=== PATIENT | female | born 1990 | race Caucasian/White ===

== ENCOUNTER 2023-06-16 07:48 | Emergency (ER) | payer MEDICAID ==
[~2023-06-16] VITALS: Ht 157.5 cm; Wt 69.6 kg
[2023-06-16 08:05] VITALS: BP 110/61; PULSE 99; RESP 16; TEMP 98.2; O2SAT 99
[2023-06-16] MEDS ORDERED: PSEU120T22 PO (09:16)
[2023-06-16] MEDS ORDERED: CARB15DR61 OT (09:16)
== END 2023-06-16 09:43 | disposition home or self-care (01) ==
LOC: MED 07:48
DX: O26.892 Other specified pregnancy related conditions, second trimester (principal); H61.23 Impacted cerumen, bilateral; O99.512 Diseases of the respiratory system complicating pregnancy, second trimester; R09.81 Nasal congestion; Z3A.20 20 weeks gestation of pregnancy; Z88.5 Allergy status to narcotic agent
CPT/HCPCS: 99282